=== PATIENT | female | born 1995 | race Caucasian/White ===

== ENCOUNTER 2023-03-12 19:05 | Emergency (ER) | payer MEDICAID ==
[~2023-03-12] VITALS: Ht 172.7 cm; Wt 54.4 kg
[2023-03-12 19:17] VITALS: BP 116/67; PULSE 78; RESP 17; TEMP 98; O2SAT 100
[2023-03-12] MEDS ORDERED: LIDOCAINE/EPI MPF 1%1:200000 30 ML VIAL INJ ONE (19:45)
[2023-03-12] MEDS ORDERED: ACETAMINOPHEN 325 MG TAB PO ONE (19:45)
[2023-03-12] MEDS ORDERED: KETOROLAC 15 MG/ML VIAL IM ONE (19:45)
[2023-03-12] MEDS ORDERED: cephALEXin 500 MG CAP PO ONE (23:00)
[2023-03-12] MEDS ORDERED: CEPH-588 PO (23:02)
[2023-03-12 23:30] VITALS: BP 116/67; PULSE 78; RESP 17; TEMP 98; O2SAT 100
== END 2023-03-12 23:30 | disposition home or self-care (01) ==
LOC: MED 19:05
DX: L03.032 Cellulitis of left toe (principal); Z79.899 Other long term (current) drug therapy
CPT/HCPCS: 10060; 73660; 81025; 90471; 90715; 96372; 99284; J1885; J2001